=== PATIENT | male | born 1940 | race Caucasian/White ===

== ENCOUNTER 2020-07-28 17:06 | Emergency (ER) | payer OTHER, BC ==
[~2020-07-28] VITALS: Ht 182.9 cm; Wt 83.9 kg
[2020-07-28] MEDS ORDERED: MACROBID 100 M100 M1 PO (17:23)
[2020-07-28 18:47] VITALS: BP 123/57
== END 2020-07-28 18:47 | disposition home or self-care (01) ==
LOC: ER 17:06
DX: R33.9 Retention of urine, unspecified (principal); I10 Essential (primary) hypertension; Z88.0 Allergy status to penicillin